=== PATIENT | male | born 1990 | race Caucasian/White ===

== ENCOUNTER 2021-02-16 07:05 | Emergency (ER) | payer OTHER ==
[~2021-02-16] VITALS: Ht 185.4 cm; Wt 108.9 kg
[2021-02-16 07:41] LABS: BASOPHILS ABSOLUTE AUTO 0.06 K/mm3 (0.00-0.23); BASOPHILS PERCENT AUTO 1 % (0-2); EOSINOPHILS ABSOLUTE AUTO 0.49 K/mm3 (0.00-0.68); EOSINOPHILS PERCENT AUTO 6 % (0-6); Hematocrit 46.5 % (37.0-53.0); Hemoglobin 16.7 g/dL (13.5-17.5); IMMATURE GRAN ABSOLUTE AUTO 0.02 K/mm3 (0.00-0.10); IMMATURE GRAN PERCENT AUTO 0 % (0-1); LYMPHOCYTES ABSOLUTE AUTO 3.74 K/mm3 (0.84-5.20); LYMPHOCYTES PERCENT AUTO 47 % (21-46); MONOCYTES ABSOLUTE AUTO 0.75 K/mm3 (0.16-1.47); MONOCYTES PERCENT AUTO 9 % (4-13); Mean Corpuscular HGB 30.8 pg (26.0-34.0); Mean Corpuscular HGB Conc 35.9 g/dL (31.5-36.5); Mean Corpuscular Volume 86 fL (80-100); Mean Platelet Volume 9.7 fL (9.1-12.4); NEUTROPHILS ABSOLUTE AUTO 2.92 K/mm3 (1.96-9.15); NEUTROPHILS PERCENT AUTO 37 % (41-73); Platelet Count 255 K/mm3 (150-400); RDW Coefficient Variation 11.8 % (11.7-14.2); RDW Standard Deviation 36.5 fL (35.1-46.3); Red Blood Cell Count 5.43 M/mm3 (4.30-5.90); White Blood Cell Count 7.98 K/mm3 (4.00-11.30)
[2021-02-16 08:05] LABS: Alanine Aminotransfer (ALT/SGP 164 U/L (12-78); Albumin, Blood 4.5 g/dL (3.4-5.0); Albumin/Globulin Ratio 1.3 (0.8-1.8); Alk Phos 88 U/L (50-136); Anion Gap 5 mmol/L (6-16); Aspartate Aminotrans (AST/SGOT 56 U/L (12-37); Bilirubin, Total 0.5 mg/dL (0.1-1.0); Blood Urea Nitrogen 14 mg/dL (8-24); Bun/Creatinine Ratio 17.3 (12.0-20.0); CO2, Blood 27 mmol/L (21-32); Calcium, Blood 9.4 mg/dL (8.5-10.1); Chloride, Blood 108 mmol/L (98-108); Creatinine, Blood 0.81 mg/dL (0.60-1.20); Globulin, Blood 3.5 g/dL (2.2-4.0); Glomerular Filtration Rate >60 (60-); Glucose, Blood 102 mg/dL (70-99); Potassium, Blood 4.1 mmol/L (3.5-5.5); Sodium, Blood 140 mmol/L (136-145); Troponin I <0.015 ng/mL (0.000-0.040)
== END 2021-02-16 08:53 | disposition home or self-care (01) ==
LOC: ER 07:05
PROVIDERS: Emergency Medicine
DX: R07.9 Chest pain, unspecified (principal)
CPT/HCPCS: 36415; 71046; 80053; 84484; 85025; 93005; 93010; 99285-25

== ENCOUNTER 2023-03-18 20:13 | Observation (INO) | payer OTHER ==
[~2023-03-18] VITALS: Ht 185.4 cm; Wt 114.6 kg
[2023-03-18 20:34] LABS: BASOPHILS ABSOLUTE AUTO 0.03 K/mm3 (0.00-0.23); BASOPHILS PERCENT AUTO 0 % (0-2); EOSINOPHILS ABSOLUTE AUTO 0.25 K/mm3 (0.00-0.68); EOSINOPHILS PERCENT AUTO 3 % (0-6); Hematocrit 43.1 % (37.0-53.0); Hemoglobin 15.5 g/dL (13.5-17.5); IMMATURE GRAN ABSOLUTE AUTO 0.01 K/mm3 (0.00-0.10); IMMATURE GRAN PERCENT AUTO 0 % (0-1); LYMPHOCYTES ABSOLUTE AUTO 3.69 K/mm3 (0.84-5.20); LYMPHOCYTES PERCENT AUTO 41 % (21-46); MONOCYTES ABSOLUTE AUTO 0.93 K/mm3 (0.16-1.47); MONOCYTES PERCENT AUTO 10 % (4-13); Mean Corpuscular Volume 84 fL (80-100); Mean Platelet Volume 9.5 fL (9.1-12.4); NEUTROPHILS ABSOLUTE AUTO 4.07 K/mm3 (1.96-9.15); NEUTROPHILS PERCENT AUTO 45 % (41-73); Platelet Count 231 K/mm3 (150-400); RDW Coefficient Variation 11.7 % (11.7-14.2); RDW Standard Deviation 35.3 fL (35.1-46.3); Red Blood Cell Count 5.16 M/mm3 (4.30-5.90); White Blood Cell Count 8.98 K/mm3 (4.00-11.30)
[2023-03-18 20:57] LABS: Albumin, Blood 4.3 g/dL (3.4-5.0); Albumin/Globulin Ratio 1.1 (0.8-1.8); Bilirubin, Total 0.7 mg/dL (0.1-1.0); Calcium, Blood 9.5 mg/dL (8.5-10.1); Creatinine, Blood 0.94 mg/dL (0.60-1.20); Globulin, Blood 3.8 g/dL (2.2-4.0); Potassium, Blood 3.6 mmol/L (3.5-5.5); Total Protein, Blood 8.1 g/dL (6.4-8.2)
[2023-03-18 23:31] VITALS: BP 141/106
[2023-03-19] VITALS (14 sets, daily range): BP systolic 107–155; BP diastolic 69–95
--- NOTE | 2023-03-19 05:30 | NUR ---
SHIFT SUMMARY PT ER ADMIT THIS SHIFT FOR GALL[facility]ONES, SURGICAL SERVICES CONSULTED. PT ENDORSES ABD PN THAT WAS RELIEVED WITH MORPHINE WHILE IN ER. PT HAS NOT COMPLAINED OF ANY PAIN SINCE ADMISSION. PT ALSO REPORTS MILD NAUSEA. PT HAS BEEN NPO SINCE ADMISSON. IVF INFUSING, PT COMPLETED SURGICAL WASH. VITALS ARE STABLE. FIRE RISK ASSESSED THIS SHIFT, PT EDUCATED ON FIRE RISK AND IGNITION SOURCES. PT DENIES HAVING IGNITION SOURCES. BED IN LOWEST POSITION, CALL LIGHT WITHIN REACH.
--- NOTE | 2023-03-19 08:58 | NUR ---
PT TAKEN TO DAY SURGERY AT THIS TIME.
--- NOTE | 2023-03-19 09:43 | NUR ---
PRE-OP NOTE PT A&OX4, BREATHING RA, CALM NO ACUTE CONCERNS. SCRATCHES MADE WITH CLIPPER TO ABDOMEN DURING SKIN PREP, SKIN WAS CLEAN DRY AND INTACT PRIOR TO PREP. Patient confirms NPO status and agrees with scheduled surgery. Pre-Op teaching done. Pt verbalizes understanding.
--- NOTE | 2023-03-19 11:50 | NUR ---
PT ARRIVED TO THE ROOM AT 1148. PT DROWSY BUT ORIENTED. HE RATES HIS PAIN AT 6/10. PAIN MEDICATION PROVIDED. PT TOLERATING SIPS OF CLEARS AND JELLO. PT'S STEVEN NOTIFIED OF PT'S ARRIVAL TO HIS ROOM.
[2023-03-19] MEDS ORDERED: Norco 5-325 Ta1 EACH PO (14:17)
--- NOTE | 2023-03-19 16:44 | NUR ---
SHIFT SUMMARY PT IS POD#0 FROM [facility] WITH DR. ALONZO. PT HAS BEEN UP AND AMBULATED, PASSED FLATUS, PAIN MANAGED WITH PO PAIN MEDICATION AND TOLERATED PO. PLAN FOR DISCHARGE THIS EVENING SINCE PT IS MEETING ALL GOALS. WILL MONITOR UNTIL REPORT TO EVE RN.
--- NOTE | 2023-03-19 19:15 | NUR ---
DISCHARGE PT AND STEVEN () WERE PROVIDED WITH WRITTEN AND VERBAL DISCHARGE INSTRUCTIONS, THEY REPORTED UNDERSTANDING. PT MET ALL GOALS PRIOR TO DISCHARGE: PAIN MANAGED, VSS, PT TOLERATING PO, VOIDING, PASSING FLATUS, AND ABLE TO AMBULATE. ABD BINDER PROVIDED FOR ABD SUPPORT AND COMFORT. PT AMBULATED OUT INDEPENDENTLY AT 1802.
== END 2023-03-19 17:45 | disposition home or self-care (01) ==
LOC: ER 20:13 → SURS 20:14
PROVIDERS: Emergency Medicine; ADMIT Surgery
PROC: 0FT44ZZ Resection of Gallbladder, Percutaneous Endoscopic Approach (ICD-10-PCS; principal; 2023-03-18)
DX: K80.00 Calculus of gallbladder with acute cholecystitis without obstruction (principal)
CPT/HCPCS: 74300; 76705; 80053; 83690; 85025; 88304; 96361; 96374; 96375; 99285-25; A9270; C1729; G0378; J1100; J1170; J1885; J2250; J2270; J2405; J2704; J3010; J7030; J7120

== ENCOUNTER → 2024-05-17 | Outpatient (CLI) | payer OTHER ==
[~2024-05-17] MED LIST: Norco 5-325 Ta1 EACH PO
[2024-05-17 13:16] LABS: Bun/Creatinine Ratio 15.8 (12.0-20.0); Calcium, Blood 9.8 mg/dL (8.5-10.1); Creatinine, Blood 1.01 mg/dL (0.60-1.20); Potassium, Blood 3.9 mmol/L (3.5-5.5); Uric Acid, Blood 6.2 mg/dL (3.5-7.2)
== END | disposition home or self-care (01) ==
LOC: LAB SHORT 13:04 → LAB 13:04
PROVIDERS: Family Medicine
DX: M10.9 Gout, unspecified (principal)
CPT/HCPCS: 80048; 84550